=== PATIENT | male | born 1970 | race African-American/Black ===

== ENCOUNTER 2019-11-22 13:02 | Outpatient (CLI) | payer BC, SELFPAY ==
[2019-11-22 13:13] LABS: Basophils Percent Auto 0.6 % (0.2-1.2); Eosinophils Absolute Auto 0.1 K/mm3 (0-0.3); Eosinophils Percent Auto 1.3 % (0-4.4); Hemoglobin 13.9 g/dL (14.0-18.0); Immature Granulocyte Absolute 0.01 K/mm3 (0.00-0.031); Immature Granulocyte Percent A 0.2 % (0-0.5); Lymphocytes Absolute Auto 1.73 K/mm3 (0.9-3.2); Lymphocytes Percent Auto 32.5 % (18.3-44.2); Mean Corpuscular HGB Conc 33.1 g/dl (32-36); Mean Corpuscular Hemoglobin 29.7 pg (26-34); Mean Corpuscular Volume 89.7 fl (80-100); Mean Platelet Volume 10.7 fl (7.4-10.4); Monocytes Absolute Auto 0.5 K/mm3 (0.1-0.6); Monocytes Percent Auto 9.4 % (2.6-8.5); Platelet Count Result 232 k/mm3 (150-375); Red Blood Count 4.68 M/mm3 (4.6-6.20); Red Cell Distribution Width 12.8 % (11.5-14.5); White Blood Count 5.3 K/mm3 (4.5-10.0)
[2019-11-22 13:17] LABS: Blood Urea Nitrogen 13 mg/dL (8-26); Carbon Dioxide 28 mmol/L (22-30); Chloride 100 mmol/L (98-109); Estimated Glomerular Filt Rate > 60; Glucose 101 mg/dL (70-105); Potassium 3.8 mmol/L (3.5-4.9); Sodium 139 mmol/L (138-146)
[2019-11-22 13:49] LABS: Alanine Aminotransferase 19 U/L (4-50); Albumin Level 4.4 g/dL (3.5-5.1); Alkaline Phosphatase 56 U/L (38-126); Aspartate Amino Transferase 30 U/L (17-59); Bilirubin,Total 1.3 mg/dL (0.2-1.3); Blood Urea Nitrogen 13 mg/dL (9-20); Calcium 9.5 mg/dL (8.4-10.2); Carbon Dioxide 30 mmol/L (22-30); Chloride 100 mmol/L (98-107); Estimated Glomerular Filt Rate > 60; Glucose 99 mg/dL (75-110); Potassium 4.1 mmol/L (3.4-5.0); Sodium 138 mmol/L (137-145)
== END 2019-11-22 13:03 | disposition home or self-care (01) ==
LOC: ANHLAB 13:03
PROVIDERS: PCP Family Medicine; Visit Provider Internal Medicine Hematology & Oncology
DX: I82.220 Acute embolism and thrombosis of inferior vena cava (principal)
CPT/HCPCS: 36415; 80048; 80053; 85025

== ENCOUNTER 2019-11-25 07:12 | Outpatient (CLI) | payer BC, SELFPAY ==
--- NOTE | ~2019-11-25 | CT_ITS ---
EXAMINATION: CT abdomen pelvis w con DATE: 11/25/2019 07:52 INDICATION: Thrombosis of inferior vena cava TECHNIQUE: Computed tomography (CT) of the abdomen and pelvis was performed with 100 cc Omnipaque 350 intravenous contrast. Automated exposure control and iterative reconstruction technique were employe d. Exam dose: 741.51 mGy-cm total exam DLP. COMPARISON: 05/25/2019 CT abdomen pelvis FINDINGS: Normal heart size. No pericardial or pleural effusion. There is minimal discoid atelectasis or scarring in the dependent lower lobes. No infiltrate or consolidation is noted in the included lo wer lung zones. The liver, gallbladder, bile ducts, spleen, pancreas, pancreatic duct, and adrenal glands and kidneys are unremarkable. No urinary tract calculus or hydroureteronephrosis. Normal caliber of the abdomina l aorta. No intraperitoneal or retroperitoneal or pelvic mass lesion or adenopathy or ascites. There is moderately prominent prostatomegaly, with diffuse thickening of the urinary bladder wall. No bowel obstruction or intraperitoneal free air, pneumatosis. Normal appendix. Mild colonic divertic ulosis; no CT evidence of diverticulitis. Small caliber IVC is unchanged compared to 05/25/2019. Included skeletal structures are unremarkable, without evidence of suspicious osteolytic or osteoblas tic lesions. IMPRESSION: No significant change since 05/25/2019 Reviewed, dictated and finalized at [facility]. Reviewed, dictated and finalized at location [facility].
== END 2019-11-25 07:13 | disposition home or self-care (01) ==
PROVIDERS: PCP Family Medicine; Visit Provider Internal Medicine Hematology & Oncology
DX: I82.220 Acute embolism and thrombosis of inferior vena cava (principal)
CPT/HCPCS: 74177; Q9967

== ENCOUNTER 2020-05-24 12:46 | Outpatient (CLI) | payer BC, SELFPAY ==
[2020-05-24 13:01] LABS: Basophils Percent Auto 0.7 % (0.2-1.2); Eosinophils Absolute Auto 0.1 K/mm3 (0-0.3); Eosinophils Percent Auto 0.8 % (0-4.4); Hematocrit 40.9 % (42.0-52.0); Hemoglobin 13.8 g/dL (14.0-18.0); Immature Granulocyte Absolute 0.01 K/mm3 (0.00-0.031); Immature Granulocyte Percent A 0.2 % (0-0.5); Lymphocytes Absolute Auto 1.83 K/mm3 (0.9-3.2); Mean Corpuscular HGB Conc 33.7 g/dl (32-36); Mean Corpuscular Hemoglobin 29.7 pg (26-34); Mean Corpuscular Volume 88.1 fl (80-100); Mean Platelet Volume 10.5 fl (7.4-10.4); Monocytes Absolute Auto 0.5 K/mm3 (0.1-0.6); Monocytes Percent Auto 8.5 % (2.6-8.5); Neutrophils Absolute Auto 3.5 K/mm3 (1.3-6.7); Neutrophils Percent Auto 58.8 % (45.5-73.1); Platelet Count Result 238 k/mm3 (150-375); Red Blood Count 4.64 M/mm3 (4.6-6.20); Red Cell Distribution Width 12.7 % (11.5-14.5); White Blood Count 5.9 K/mm3 (4.5-10.0)
[2020-05-24 13:06] LABS: Blood Urea Nitrogen 18 mg/dL (8-26); Carbon Dioxide 30 mmol/L (22-30); Chloride 101 mmol/L (98-109); Estimated Glomerular Filt Rate > 60; Glucose 98 mg/dL (70-105); Potassium 3.8 mmol/L (3.5-4.9); Sodium 139 mmol/L (138-146)
[2020-05-24 17:03] LABS: Alanine Aminotransferase 30 U/L (4-50); Albumin Level 4.1 g/dL (3.5-5.1); Alkaline Phosphatase 54 U/L (38-126); Anion Gap 10 mmol/L (8-16); Aspartate Amino Transferase 32 U/L (17-59); Bilirubin,Total 1.1 mg/dL (0.2-1.3); Blood Urea Nitrogen 18 mg/dL (9-20); Calcium 9.7 mg/dL (8.4-10.2); Carbon Dioxide 27 mmol/L (22-30); Chloride 103 mmol/L (98-107); Estimated Glomerular Filt Rate > 60; Glucose 109 mg/dL (75-110); Sodium 140 mmol/L (137-145)
== END 2020-05-24 12:47 | disposition home or self-care (01) ==
PROVIDERS: PCP Family Medicine; Visit Provider Internal Medicine Hematology & Oncology
DX: I82.220 Acute embolism and thrombosis of inferior vena cava (principal)
CPT/HCPCS: 36415; 80048; 80053; 85025

== ENCOUNTER 2020-08-29 18:07 | Inpatient (IN) | payer BC, SELFPAY ==
--- NOTE | ~2020-08-29 | CT_ITS ---
EXAMINATION: CTA chest PE abdomen pel DATE: 08/29/2020 20:26 SECURITY SYSTEMS ENGINEER INDICATION: History of clots. Evaluate for pulmonary embolism. TECHNIQUE: Computed tomographic angiography (CTA) of the chest, abdomen, and pelvis was performed wit hout and with 100 mL Omnipaque-350 intravenous contrast. The dose-length product was 1183.09 mGy-cm. Maximum intensity projection 3D-reconstructions of the aorta and other arteries were constructed by nataliia brooks technologist on a separate workstation. Automated exposure control and iterative reconstruction te chnique were employed. COMPARISON: CT dated 11/25/2019. FINDINGS: CHEST CTA: The study is technically adequate without evidence for pulmonary embolism. There is heterogeneous gretchen earance to the SVC which likely is due to flow mixing artifact rather than thrombosis, although throm bus is not excluded. No significant pleural or pericardial effusion. Heart size is normal. There is p atchy peripheral airspace consolidation with a nodular appearance to several of these areas. No endob ronchial lesions. ABDOMEN AND PELVIS CTA: The liver, spleen, pancreas, adrenal glands and kidneys are unremarkable. The IVC remains small in ca liber, although appear to remain patent. There are persistent prominent collaterals extending from th e left with enlarged azygos and hemiazygos veins as well as paraspinal veins. There is also collatera l drainage from paraspinal veins. Bladder wall is thickened with mild perivesical infiltration, suspi cious for cystitis. No free air or free fluid. Nonobstructive bowel gas pattern. IMPRESSION: 1. No evidence for pulmonary embolism. 2: Patchy peripheral airspace consolidation with areas of nodularity. Differential diagnosis includes pneumonia, atelectasis and/or focal areas of pulmonary infarction. 3: Heterogeneous appearance to the SVC which likely is due to flow mixing artifact rather than thromb osis, although thrombus is not excluded. 3: Unchanged small caliber inferior vena cava and bilateral common iliac veins with multiple collater al vessels, likely sequela of previous thrombosis. Reviewed, dictated and finalized at location [facility]. RITY SYSTEMS ENGINEER IMPRESSION: 1. No evidence for pulmonary embolism. 2: Patchy peripheral airspace consolidation with areas of nodularity. Different ial diagnosis includes pneumonia, atelectasis and/or focal areas of pulmonary i nfarction. 3: Heterogeneous appearance to the SVC which likely is due to flow mixing artif act rather than thrombosis, although thrombus is not excluded. 3: Unchanged small caliber inferior vena cava and bilateral common iliac veins with multiple collateral vessels, likely sequela of previous thrombosis.
--- NOTE | ~2020-08-29 | US_ITS ---
EXAMINATION: US venous doppler LE EXAM DATE: 08/30/2020 08:12 INDICATION: DVT. Left leg pain. History DVT. TECHNIQUE: Multiple grayscale, color flow and Doppler images of the lower extremity deep venous syste ms bilaterally were obtained and reviewed. Comparison is made to prior examination from 09/02/2018. FINDINGS: RIGHT SIDE Common femoral: -------- Normal. Profunda femoral: ------- Normal. Femoral: Normal. Popliteal: Normal. Posterior tibial: --------- Normal. Peroneal: Normal. Gastrocnemius: Not visualized. Soleus: Not visualized. Greater saphenous: ----- Normal. Lesser saphenous: ------ Not visualized. LEFT SIDE Common femoral: --------Thrombosed. Profunda femoral: -------Thrombosed. Femoral: Thrombosed. Popliteal: Thrombosed. Posterior tibial: --------- Normal. Peroneal: Normal. Gastrocnemius: Not visualized. Soleus: Not visualized. Greater saphenous: ----- Normal. Lesser saphenous: ------ Not visualized. IMPRESSION: 1. Left common femoral through popliteal DVT, probably acute. 2. Slow venous flow bilaterally. I discussed DVT with hospitalist José Miguel at 08/30/2020 08:18 GRADES 7 8 TUTOR . Reviewed, dictated and finalized at location [facility]. ES 7 8 TUTOR
[2020-08-29 18:16] VITALS: BP 129/80; PULSE 88; RESP 18; TEMP 36.7; O2SAT 99
--- NOTE | 2020-08-29 18:44 | ECG_ITS ---
Measurements Intervals [place] Rate: 88 P: 54 HI: 167 QRS: 23 QRSD: 89 T: -16 QT: 338 QTc: 409 Interpretive Statements SINUS RHYTHM NONSPECIFIC T-WAVE ABNORMALITY- ANTEROLAT/INF LEADS BASELINE WANDER- V4-V6 BORDERLINE ECG Electronically Signed On 08-29-2020 20:12:41 AIR CONDITIONING SHEET METAL INSTALLER by Zeeshan Bailon D.O.
--- NOTE | 2020-08-29 18:50 | ED.GENADULT ---
HPI - General Adult General Chief complaint: Unspecified Stated complaint: leg/groin pain Time Seen by Provider: 08/29/20 18:30 Source: patient, family and old records reviewed Mode of arrival: ambulatory Limitations: no limitations History of Present Illness HPI narrative: Patient is a 50-year-old male who presents with left leg pain low back pain and pain in the groin bilaterally that radiates into the thighs anteriorly patient notes history of venous thrombus in the past and notes that he has been off his anticoagulation since being cleared by his oncologist ad setter a year ago patient notes that 19 days ago he was diagnosed with Covid and has been having some fatigue and shortness of breath since patient denies any fever but does note he has had chills since his Covid diagnosis patient on arrival does not appear uncomfortable or in distress patient denies other pertinent past medical history. Patient denies injury or trauma. Patient has tried [id number]-zgn-[id number] medication with minimal improvement for his symptoms. Patient notes he also has some tingling in the left leg. Patient denies history of back issues or similar occurrence. Patient presents with normal gait Related Data Home Medications Medication Instructions Recorded Confirmed aspirin [Aspir-81] 81 mg PO DAILY 08/29/20 08/29/20 calcium citrate-vitamin D3 1 tablet PO DAILY 08/29/20 08/29/20 [Calcitrate-Vitamin D] vitamin B complex [B 1 tablet PO DAILY 08/29/20 08/29/20 Complex-Vitamin B12] Allergies Allergy/AdvReac Type Severity Reaction Status Date / Time aspirin Allergy Unknown POSSIBLE Verified 03/02/19 18:36 BLEED Review of Systems Review of Systems: All systems reviewed & are unremarkable except as noted in HPI and below PMFSH Past Medical History Medical History (Updated 08/29/20 @ 22:06 by Leo Morocho PA-C) DVT (deep venous thrombosis) Social History Social History (Updated 08/29/20 @ 18:51 by Leo Morocho PA-C) Smoking status: Former smoker Gender identity (if verbalized by the patient): Male Exam Narrative: Exam Narrative: GENERAL: Well-appearing, well-nourished, and in no acute distress. HEAD: Normocephalic, atraumatic. EYES: PERRLA and EOMI. ENT: Nares clear, no rhinorrhea or epistaxis. Mucous membranes moist. NECK: Supple. No adenopathy or masses. CHEST: Clear to auscultation. No respiratory distress. No wheezes rales or rhonchi HEART: Regular rate and rhythm. No murmur heard. Normal peripheral pulses. ABDOMEN: Soft, nontender, nondistended EXTREMITIES: Normal range of motion. No edema. Tenderness of the left paraspinal CVA down to the lumbar region no deformities noted SKIN: Warm, dry, no rash. NEURO: No focal deficits. Alert and oriented x3. Cranial nerves II through XII grossly intact. Neurovascularly intact. Capillary refill less than 2 seconds PSYCH: Normal mood and affect. Course Course Emergency Course: Patient is a 50-year-old male who presented with symptoms consistent with his prior thrombus patient was found to have potential thrombus was started on heparin and will be placed in the hospital with his ad setter consult under the hospitalist service. Patient is agreeing with this plan and is hemodynamically stable ABCs and vital signs intact and stable. Consultations Consultation #1: Spoke with Dr. Avila the patient's ad setter who recommends starting heparin and will follow patient in hospital Spoke with the hospitalist Dr. Santacruz and who recommends placing the patient on a medical floor with observation status and will repeat imaging in the morning Date: 08/29/20 Vital Signs Vital signs: Vital Signs Temperature 98.0 F 08/29/20 18:16 Pulse Rate 88 08/29/20 18:16 Respiratory Rate 18 08/29/20 18:16 Blood Pressure 129/80 08/29/20 18:16 Pulse Oximetry 99 08/29/20 18:16 Temperature 97.6 F 08/29/20 19:00 Pulse Rate 79 08/29/20 21:35 Respiratory Rate 16 03/0
[2020-08-29] MEDS: MORPHINE SULFATE (*CRX) 4 MG/ML INJ IV PUSH (18:58)
[2020-08-29 19:00] VITALS: BP 139/90; PULSE 81; PULSE 84; RESP 17; TEMP 36.4; O2SAT 95
[2020-08-29 19:03] LABS: Basophils Percent Auto 0.4 % (0.2-1.2); Eosinophils Absolute Auto 0.1 K/mm3 (0-0.3); Eosinophils Percent Auto 0.9 % (0-4.4); Hematocrit 40.9 % (42.0-52.0); Hemoglobin 13.7 g/dL (14.0-18.0); Immature Granulocyte Absolute 0.06 K/mm3 (0.00-0.031); Immature Granulocyte Percent A 0.5 % (0-0.5); Lymphocytes Absolute Auto 1.81 K/mm3 (0.9-3.2); Lymphocytes Percent Auto 16.3 % (18.3-44.2); Mean Corpuscular HGB Conc 33.5 g/dl (32-36); Mean Corpuscular Hemoglobin 29.8 pg (26-34); Mean Corpuscular Volume 88.9 fl (80-100); Mean Platelet Volume 9.9 fl (7.4-10.4); Monocytes Absolute Auto 1.1 K/mm3 (0.1-0.6); Monocytes Percent Auto 10.2 % (2.6-8.5); Neutrophils Percent Auto 71.7 % (45.5-73.1); Platelet Count Result 358 k/mm3 (150-375); Red Cell Distribution Width 12.4 % (11.5-14.5); White Blood Count 11.1 K/mm3 (4.5-10.0)
--- NOTE | 2020-08-29 19:12 | PC.NURSE ---
Pt report given to YARIEL valdes he has assumed pt care.
[2020-08-29 19:14] LABS: Prothrombin Time 13.3 Seconds (11.1-14.7)
[2020-08-29 19:15] LABS: Partial Thromboplastin Time 26.2 SECONDS (22.3-36.8)
[2020-08-29 19:21] LABS: CRP 2.1 mg/dL (<1.0)
[2020-08-29 19:26] LABS: Alanine Aminotransferase 62 U/L (4-50); Albumin Level 4.3 g/dL (3.5-5.1); Alkaline Phosphatase 67 U/L (38-126); Anion Gap 9 mmol/L (8-16); Aspartate Amino Transferase 44 U/L (17-59); Bilirubin,Total 0.8 mg/dL (0.2-1.3); Blood Urea Nitrogen 17 mg/dL (9-20); Calcium 9.7 mg/dL (8.4-10.2); Carbon Dioxide 29 mmol/L (22-30); Chloride 98 mmol/L (98-107); Estimated CRCL calculation 84 ml/min; Estimated Glomerular Filt Rate > 60; Glucose 110 mg/dL (75-110); Potassium 3.7 mmol/L (3.4-5.0); Sodium 136 mmol/L (137-145)
[2020-08-29 19:36] LABS: Erythrocyte Sedimentation Rate 42 mm/hr (0-20)
[2020-08-29 20:08] LABS: D Dimer 19.97 ug/mL (<0.48)
--- NOTE | 2020-08-29 20:25 | PC.NURSE ---
pt returned from ct at this time via stretcher. cognos architect notified erp dr johnson, and karo cornelius that pt foot is now blood. both erp to bedside for assessment at this time.
[2020-08-29 20:45] VITALS: BP 132/81; PULSE 79; RESP 14; O2SAT 96
[2020-08-29] MEDS: HEPARIN SODIUM 5,000 UNITS/ML VIAL 6500 UNITS IV PUSH (21:29)
[2020-08-29] MEDS: HEPARIN SOD/D5W 100 UNITS/ML 25,000 UNITS/250 ML BAG 15 UNITS IV CONT (21:29)
[2020-08-29 21:35] VITALS: BP 132/75; PULSE 79; RESP 16; O2SAT 95
[2020-08-29 23:18] VITALS: BP 126/84; PULSE 83; RESP 16
--- NOTE | 2020-08-29 23:59 | ADMGEN ---
This patient, Mikael Barrera, was admitted to Medical Room 345-01. Patient/family oriented to hospital policies and general routines including ID bracelet, bed and alarms, visiting hours, pain management, procedures, bathroom and other care routines, personal items, smoking policy, room service/diet, and visiting hours. Information on how to activate the Rapid Response Team has been discussed. Patient/Family are encouraged to report perceived risks to care and to ask questions if they do not understand what they are told or what they should do.
[2020-08-30 00:02] VITALS: BP 108/74; PULSE 104; RESP 20; TEMP 36.3; O2SAT 100; BMI 31.2
--- NOTE | 2020-08-30 00:13 | PM.IMHP ---
H&P: HPI History of Present Illness Date/Time: 08/30/20 00:13 Chief Complaint: Groin pain and back pain Narrative: Mikael Barrera is a 50 year old male with a past medical history of DVTs August 2018 who presented to the ER with bilateral groin pain and low back pain similar to when he had his previous inferior vena cava thrombus. The patient reported that he tested positive for COVID-19 on August 11. His symptoms included headache, cough and a metallic taste in his mouth. Most of his symptoms had resolved by the except for cough in overwhelming fatigue. He reported he also had some shortness of breath with exertion. On August 21 he reported that he was walking across the room when he had a syncopal episode. He has noticed becoming diaphoretic when he has exertion and has to sit down to recover. He reports that his cough is worse with deep breathing. He denies any chest pain or palpitations. He never had any fevers with his COVID diagnosis. He reports that when he woke up on Friday he noticed some vague low back discomfort and groin discomfort. The pain in his groins radiated into his thighs anteriorly. The symptoms were similar to when he had his prior her thrombus. The pain is achy and is worse with activity. Pain is moderate in intensity. He reports that just prior to coming to the ER he was ambulating in his left leg gave out. He has noticed his left leg as more splotchy discoloration. He has not noticed any lower extremity swelling. He has 2+ palpable pulses pedal and posterior tib. The patient had been on Xarelto for about a year following his prior DVT in 2019. Review of Systems Review of Systems: Narrative: 12 systems were reviewed with pertinent positives and negatives per HPI. Except as documented in the HPI, all other systems were reviewed and are negative. 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 He had drinks alcohol in moderation once every 2-3 months. He has been for 14 years. He has 2 daughters ages 22 and 14 or healthy. 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 They have a Bulgar[place] Mas. He has 2 siblings who are in their 40s and 50s who are healthy. Code status: Full code Smoking status: Never smoker Alcohol intake: never Substance use: never Gender identity (if verbalized by the patient): Male Spiritual care concerns: No Meds Home Medications and Allergies Home Medications Medication Instructions Recorded Confirmed Type aspirin [Aspir-81] 81 mg PO DAILY 08/29/20 08/29/20 History calcium citrate-vitamin D3 1 tablet PO DAILY 08/29/20 08/29/20 History [Calcitrate-Vitamin D] vitamin B complex [B 1 tablet PO DAILY 08/29/20 08/29/20 History Complex-Vitamin B12] Allergies Allergy/AdvReac Type Severity Reaction Status Date / Time No Known Allergies Allergy Verified 08/30/20 01:09 Vital Signs Vital Signs - 24 hr 08/29/20 18:16 08/29/20 19:00 08/29/20 20:45 Temperature 98.0 F 97.6 F Pulse Rate 88 84 79 Respiratory Rate 18 17 14 Blood Pressure 129/80 139/90 132/81 Pulse Oximetry 99 95 96 08/29/20 21:35 08/29/20 23:18 08/30/20 00:02 Temperature 97.3 F L Pulse Rate 79 83 104 H Respiratory Rate 16 16 20 Blood Pressure 132/75 126/84 108/74 Pulse Oximetry 95 100 Exam Narrative: Exam Narrative: PHYSICAL EXAM: WEIGHT 98.7 kg BMI 31.2 General: No
[2020-08-30] MEDS: SODIUM CHLORIDE 0.9% IV 1,000 ML 75 ML IV CONT ×2 (02:02→22:03)
[2020-08-30 03:44] LABS: Basophils Percent Auto 0.4 % (0.2-1.2); Eosinophils Absolute Auto 0.1 K/mm3 (0-0.3); Eosinophils Percent Auto 0.5 % (0-4.4); Hematocrit 38.1 % (42.0-52.0); Hemoglobin 12.9 g/dL (14.0-18.0); Immature Granulocyte Absolute 0.05 K/mm3 (0.00-0.031); Immature Granulocyte Percent A 0.5 % (0-0.5); Lymphocytes Absolute Auto 1.94 K/mm3 (0.9-3.2); Lymphocytes Percent Auto 18.5 % (18.3-44.2); Mean Corpuscular HGB Conc 33.9 g/dl (32-36); Mean Corpuscular Hemoglobin 29.7 pg (26-34); Mean Corpuscular Volume 87.8 fl (80-100); Monocytes Absolute Auto 1.1 K/mm3 (0.1-0.6); Neutrophils Absolute Auto 7.4 K/mm3 (1.3-6.7); Neutrophils Percent Auto 70.1 % (45.5-73.1); Platelet Count Result 334 k/mm3 (150-375); Red Blood Count 4.34 M/mm3 (4.6-6.20); Red Cell Distribution Width 12.6 % (11.5-14.5); White Blood Count 10.5 K/mm3 (4.5-10.0)
[2020-08-30 03:56] LABS: Partial Thromboplastin Time 102.6 SECONDS (22.3-36.8)
[2020-08-30 05:09] VITALS: BP 114/70; PULSE 65; RESP 18; TEMP 36.3; O2SAT 96
[2020-08-30] MEDS: FAMOTIDINE 20 MG/2 ML VIAL IV PUSH ×2 (09:14→21:05)
[2020-08-30] MEDS: ASPIRIN 81 MG ENTERIC TABLET PO (09:14)
[2020-08-30] MEDS: VITAMIN B COMPLEX CAPSULE 1 CAP PO (09:14)
[2020-08-30 09:50] LABS: Partial Thromboplastin Time 89.3 SECONDS (22.3-36.8)
[2020-08-30 11:32] LABS: Add Urine Microscopic? YES; Appearance Urine Clear (Clear); Bilirubin Urine Negative (Negative); Blood Urine Negative (Negative); Color Urine Yellow (Yellow); Glucose Urine UA Negative (Negative); Ketones Urine Negative (Negative); Leukocyte Esterase Ur Negative LEU/UL (Negative); Mucus Urine Rare /lpf; Nitrate Urine Negative (Negative); Protein Urine 1+ mg/dL (Negative); RBC Urine 0-2 /hpf (0-2); Squamous Epithelial Cell Urine Rare /hpf (Few); Urobilinogen Urine Negative mg/dL (<2.0); WBC Urine 0-3 /hpf
[2020-08-30 11:33] VITALS: BMI 31.2
[2020-08-30 11:36] LABS: Specific Grav Ur 1.035 (1.001-1.035)
--- NOTE | 2020-08-30 11:49 | PCNSR ---
On 08/30/20, the student,Emperatriz Whitt, provided care and completed [facility]. I have reviewed the student's documentation and agree with the findings.
--- NOTE | 2020-08-30 11:51 | PM.IMPN ---
Progress Note: A&P Assessment and Plan (1) DVT (deep venous thrombosis): Code(s): I82.409 - Acute embolism and thrombosis of unspecified deep veins of unspecified lower extremity Status: Inactive Assessment and Plan: Extensive DVT of left lower extremity on venous Doppler. Suspected DVT of SVT, although CTA c/a/p read is likely due to mixing artifact rather than thrombosis. Dr. Avila consulted from the ED, whom he follows as an outpatient for a previous DVT. Appreciate recommendations. No signs of vascular compromise as patient has great distal pulses and full sensation in left LE Continue heparin drip for now Will discuss further with Dr. Avila, but will likely need to be transitioned to either Lovenox or possible Xarelto again Monitor (2) COVID-19: Code(s): U07.1 - COVID-19 Status: Acute Assessment and Plan: He is beyond the infectious window. The patient is cough and shortness of breath symptoms have actually been improving. Monitor Subjective Date/time seen: 08/30/20 11:51 Interval history: Patient is a 50 year old male with a past medical history of DVTs August 2018 who is seen in follow up for extensive DVT of left leg. Patient states he feels okay currently, but his main complaint is lower back pain. Notes this is from his lower back near his sacrum and extends bilaterally over his hip bones and shoots down the back of this legs, left worse then right. Patient otherwise feels okay today. Has full sensation in both legs. No other complaints other than a residual dry cough from his COVID. Denies f/c/s, headaches, dizziness, lightheadedness, cp/palpitations, sob/cough, n/v/d/c, abd pain, changes in BMs, dysuria Review of Systems Review of Systems: All systems reviewed & are unremarkable except as noted in HPI and below Exam Narrative: Exam Narrative: General: Patient resting in semi-mcgovern's position in bed in no acute distress. HEENT: Normocephalic, EOMI, oral mucosa moist. Cardiovascular: Rate and rhythm are regular. No notable murmur, rub, or gallop. Respiratory: Lungs clear to auscultation all mitchell. Non-labored breathing. Abdomen: Soft, non-tender, non-distended, bowel sounds present. Extremities: Peripheral pulses intact. edema appreciated in left LE. B/l pedal pulses +2. LE slight cool to touch. Erythema noted on inside of left thigh and knee. Neuro: No focal neurological deficits. Speech is clear. Objective Data Vital Signs Vital Signs: Last Vital Signs Temp 97.4 F L 08/30/20 05:09 Pulse 65 08/30/20 05:09 Resp 18 08/30/20 05:09 BP 114/70 08/30/20 05:09 Pulse Ox 96 08/30/20 05:09 Intake/Output Intake/Output: Intake & Output 08/27/20 08/28/20 08/29/20 08/30/20 23:59 23:59 23:59 23:59 Intake Total 490 Balance 490 Meds/Results Medications: Active Medications Generic Name Dose Route Start Last Admin Trade Name Freq PRN Reason Stop Dose Admin Aspirin 81 mg 08/30/20 09:00 08/30/20 09:14 Aspirin 81 Mg Enteric Tablet PO 81 mg DAILY CLAUDETTE Administration Calcium Citrate 1 tablet 08/30/20 09:00 08/30/20 09:14 Calcium Citrate 315 Mg/Vitamin D 250 Units Tab PO 1 tablet DAILY CLAUDETTE Administration Famotidine 20 mg 08/30/20 09:00 08/30/20 09:14 Famotidine 20 Mg/2 Ml Vial IV PUSH 20 mg Q12HR CLAUDETTE Administration Heparin Sodium (Porcine) 6,500 units 08/29/20 21:02 Heparin Sodium 5,000 Units/Ml Vial IV PUSH PRN PRN aPTT less than 55 seconds Heparin Sodium (Porcine) 3,500 units 08/29/20 21:02 Heparin Sodium 5,000 Units/Ml Vial IV PUSH PRN PRN aPTT 55 - 70 seconds Heparin Sodium/Dextrose 25,000 units in 250 mls @ 15 mls/hr 08/29/20 21:05 08/30/20 04:01 Heparin Sodium/D5w 100 Units/Ml IV CONT 1,500 units/hr .[id number] CLAUDETTE 15 mls/hr Titration Protocol 1,500 UNITS/HR Acetaminophe
[2020-08-30 12:00] VITALS: BP 120/74; PULSE 80; RESP 18; TEMP 36.1; O2SAT 98
[2020-08-30] MEDS: HEPARIN SOD/D5W 100 UNITS/ML 25,000 UNITS/250 ML BAG 15 UNITS IV CONT (13:45)
[2020-08-30] MEDS: guaiFENesin/DEXTROMETHORPHAN 10 ML UDC 5 ML PO ×2 (14:21→21:05)
--- NOTE | 2020-08-30 17:29 | PDONCCN ---
[facility] - Date of Consult Date/Time: 08/30/20 17:29 Requesting Physician: José Miguel Thompson PA-C Primary Care Provider: Jordan MarinoChela - Consult Narrative Reason for consult: Hypercoagulable state Narrative: Mikael Barrera is a 50 year old male with history of inferior vena cava thrombosis diagnosed in 2019. He was treated with Xarelto with complete resolution of IVC thrombosis. Dr. was discontinued in February 2019. Hypercoagulable workup at that time was completely unremarkable. He now came back into the hospital with left lower extremity edema and pain along with lower pelvic and back pain. He was dealing with COVID-19 infection and tested positive August 11. He was quite tired and fatigued with having some shortness of breath. He was quite sedentary due to tiredness and fatigue. Patient had CT scan done in the ER that showed possible as we see thrombosis and pulmonary infarction. Doppler study showed left lower extremity DVT. D-dimer was found to be elevated. Patient was started on heparin. He is already feeling better and the pain is under better control. 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 Surgical History: Surgical History (Last Updated 08/30/20 @ 00:18 by Laura Casey DO) No significant past surgical history Family History: Family History (Last Updated 08/30/20 @ 01:31 by Laura Casey DO) Father Malignant neoplasm of prostate 92 years old Senile dementia Mother Diabetes mellitus 89 years old - Social History Social History: Social History (Last Updated 08/30/20 @ 01:31 by Laura Casey DO) Gender Identity: Gender identity (if verbalized by the patient): Male Alcohol Use: Alcohol intake: never Substance Use: Substance use: never Others: Spiritual care concerns: No Smoking Status: Smoking status: Never smoker Meds Home Medications Medication Instructions Recorded Confirmed Type aspirin [Aspir-81] 81 mg PO DAILY 08/29/20 08/29/20 History calcium citrate-vitamin D3 1 tablet PO DAILY 08/29/20 08/29/20 History [Calcitrate-Vitamin D] vitamin B complex [B 1 tablet PO DAILY 08/29/20 08/29/20 History Complex-Vitamin B12] Allergies Allergy/AdvReac Type Severity Reaction Status Date / Time No Known Allergies Allergy Verified 08/30/20 01:09 Results - Labs CBC & Chem 7: 08/30/20 03:33 08/29/20 18:52 Labs: Short CBC 08/29/20 08/30/20 Range/Units 18:52 03:33 WBC 11.1 H 10.5 H (4.5-10.0) K/mm3 Hgb 13.7 L 12.9 L (14.0-18.0) g/dL Hct 40.9 L 38.1 L (42.0-52.0) % Plt Count 358 D 334 (150-375) k/mm3 BMP 08/29/20 18:52 Sodium 136 L Potassium 3.7 Chloride 98 Carbon Dioxide 29 BUN 17 Creatinine 1.10 Glucose 110 Calcium 9.7 Liver Function 08/29/20 Range/Units 18:52 Total Bilirubin 0.8 (0.2-1.3) mg/dL AST 44 (17-59) U/L ALT 62 H (4-50) U/L Alkaline Phosphatase 67 (38-126) U/L Albumin 4.3 (3.5-5.1) g/dL Urine 08/30/20 Range/Units 11:19 Urine Color Yellow (Yellow) Urine Appearance Clear (Clear) Urine pH 6.0 (5.0-9.0) Ur Specific [place] 1.035 (1.001-1.035) Urine Protein 1+ H (Negative) mg/dL Urine Glucose (UA) Negative (Negative) mg/dL Assessment and Plan - Additional Plan Hypercoagulable state. Patient was previously diagnosed with inferior vena cava thrombosis in 2019. He was treated with Xarelto with complete resolution of IVC thrombosis. Hypercoagulable workup performed at that time came back unremarkable. Xarelto was discontinued in February 2019 and patient was started on aspirin. He was evaluated by Dr. Henderson in vascular surgery and no furt
[2020-08-30 20:00] VITALS: BP 125/75; PULSE 67; RESP 17; TEMP 36.5; O2SAT 98
[2020-08-31] VITALS: BP 112/65; PULSE 62; RESP 17; TEMP 36.4; O2SAT 97
--- NOTE | 2020-08-31 | ECHO_ITS ---
Patient Info Name: Mikael Barrera Age: 50 years : 1970 Gender: Male Ht: 70 in Wt: 217 lbs BSA: 2.23 m2 HR: 69 bpm BP: 122 / 74 mmHg Technical Quality: Good Exam Date: 08/31/2020 4:23 PM Exam Location: [facility] Pulmonary Exam Room: 341 Patient Status: Inpatient Admit Date: 08/31/2020 Staff Ordering Physician: Latrell Johnson MD Management Developer: Leelee Finnegan RDCS Attending Provider: José Miguel Thompson PA-C Exam Type: CA echo doppler color flow Study Info Indications - SOB /DVT Complete two-dimensional, color flow and Doppler transthoracic echocardiogram is performed. Summary 1. Complete two-dimensional, color flow and Doppler transthoracic echocardiogram is performed. 2. Left ventricular systolic function is normal, estimated at 60-65%. Left Ventricle Left ventricular chamber dimension is normal. Left ventricular systolic function is normal, estimated at 60-65%. There is no increased left ventricular wall thickness. Left ventricular septal wall motion is normal. The left ventricular diastolic function is normal. Right Ventricle Right ventricular chamber dimension is normal. Right ventricular systolic function is normal. Left Atria Left atrial chamber dimension is normal. Right Atria Right atrial chamber dimension is normal. Aortic Valve The aortic valve is trileaflet. There is no aortic valve sclerosis. There is no aortic valve stenosis. There is no aortic valve regurgitation. Pulmonic Valve The pulmonic valve is normal. There is no pulmonic valve stenosis. There is no pulmonic regurgitation. Mitral Valve The mitral valve has normal leaflets. There is no mitral valve stenosis. There is no mitral valve regurgitation. Tricuspid Valve The tricuspid valve leaflets are normal. There is no significant tricuspid valve stenosis. There is no tricuspid valve regurgitation. No pulmonary hypertension, estimated pulmonary arterial systolic pressure is 28 mmHg. Pericardium/Pleural The pericardium appears normal. There is no pericardial effusion. Inferior Vena Cava Normal inferior vena cava with >50% collapse upon inspiration consistent with normal right atrial pressure, 10 mmHg. Aorta The aortic root size at the sinus of Valsalva is normal. The prox ascending aorta size is normal. Left Ventricular Outflow Tract Name Value Normal LVOT 2D LVOT Diameter 2.1 cm LVOT Doppler LVOT Peak Gradient 5 mmHg LVOT Mean Gradient 3 mmHg LVOT VTI 20 cm LVOT VTI/AV VTI Ratio 0.9 LVOT Stroke Volume 65 ml LVOT CO 15.1 l/min LVOT CI 6.8 l/min/m2 Pulmonic Valve Name Value Normal PV Doppler PV Peak Gradient
[2020-08-31 05:18] VITALS: BP 114/64; PULSE 65; RESP 14; TEMP 36.4; O2SAT 94
[2020-08-31 06:11] LABS: Basophils Percent Auto 0.3 % (0.2-1.2); Eosinophils Absolute Auto 0.1 K/mm3 (0-0.3); Eosinophils Percent Auto 1.4 % (0-4.4); Hematocrit 35.4 % (42.0-52.0); Hemoglobin 11.6 g/dL (14.0-18.0); Immature Granulocyte Absolute 0.04 K/mm3 (0.00-0.031); Immature Granulocyte Percent A 0.5 % (0-0.5); Lymphocytes Absolute Auto 2.29 K/mm3 (0.9-3.2); Lymphocytes Percent Auto 25.8 % (18.3-44.2); Mean Corpuscular HGB Conc 32.8 g/dl (32-36); Mean Corpuscular Hemoglobin 29.1 pg (26-34); Mean Corpuscular Volume 88.7 fl (80-100); Mean Platelet Volume 10.3 fl (7.4-10.4); Monocytes Absolute Auto 1.2 K/mm3 (0.1-0.6); Monocytes Percent Auto 13.9 % (2.6-8.5); Neutrophils Absolute Auto 5.2 K/mm3 (1.3-6.7); Neutrophils Percent Auto 58.1 % (45.5-73.1); Platelet Count Result 319 k/mm3 (150-375); Red Blood Count 3.99 M/mm3 (4.6-6.20); Red Cell Distribution Width 12.5 % (11.5-14.5); White Blood Count 8.9 K/mm3 (4.5-10.0)
[2020-08-31 06:31] LABS: Alanine Aminotransferase 40 U/L (4-50); Albumin Level 3.7 g/dL (3.5-5.1); Alkaline Phosphatase 49 U/L (38-126); Anion Gap 5 mmol/L (8-16); Aspartate Amino Transferase 30 U/L (17-59); Blood Urea Nitrogen 15 mg/dL (9-20); Calcium 8.7 mg/dL (8.4-10.2); Carbon Dioxide 31 mmol/L (22-30); Chloride 100 mmol/L (98-107); Estimated CRCL calculation 100 ml/min; Estimated Glomerular Filt Rate > 60; Glucose 99 mg/dL (75-110); Magnesium 1.4 mg/dL (1.6-2.3); Sodium 136 mmol/L (137-145)
[2020-08-31 06:37] LABS: Partial Thromboplastin Time 96.7 SECONDS (22.3-36.8)
[2020-08-31] MEDS: HEPARIN SOD/D5W 100 UNITS/ML 25,000 UNITS/250 ML BAG 15 UNITS IV CONT (06:48)
--- NOTE | 2020-08-31 08:05 | PM.IMPN ---
Progress Note: A&P Assessment and Plan (1) DVT (deep venous thrombosis): Code(s): I82.409 - Acute embolism and thrombosis of unspecified deep veins of unspecified lower extremity Status: Inactive Assessment and Plan: Extensive DVT of left lower extremity on venous Doppler and suspected DVT of SVT, although CTA c/a/p read as likely due to mixing artifact rather than thrombosis. Dr. Avila consulted from the ED, whom he follows as an outpatient for a previous DVT. Discussed case with Dr. Avila, and plan is for heparin drip through tonight and likely discharge tomorrow on Xarelto; plans for lifelong a/c per Dr. Avila. Appreciate recommendations. No signs of vascular compromise as patient has great distal pulses and full sensation in left LE Continue heparin drip for now through tomorrow morning; likely transition to Xarelto tomorrow morning - 15 mg BID x 3 weeks, then 20 mg every evening thereafter F/u with Dr. Avila as outpatient Monitor (2) COVID-19: Code(s): U07.1 - COVID-19 Status: Acute Assessment and Plan: He is beyond the infectious window. The patient is cough and shortness of breath symptoms have actually been improving. 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 Patient states he feels better today. He did have an episode of throbbing LLE pain for about 3-4 hours overnight, but resolved around 4 am. He does feel he may have more sensation in both his LE. He reporta constipation and would like a laxative. Back pain is better today as well. No other complaints other than a residual dry cough from his COVID. Denies f/c/s, headaches, dizziness, lightheadedness, cp/palpitations, sob/cough, n/v/d, abd pain, changes in BMs, dysuria Review of Systems Review of Systems: All systems reviewed & are unremarkable except as noted in HPI and below Exam Narrative: Exam Narrative: General: Patient resting in semi-mcgovern's position in bed in no acute distress. HEENT: Normocephalic, EOMI, oral mucosa moist. Cardiovascular: Rate and rhythm are regular. No notable murmur, rub, or gallop. Respiratory: Lungs clear to auscultation all mitchell. Non-labored breathing. Abdomen: Soft, non-tender, non-distended, bowel sounds present. Extremities: Peripheral pulses intact. edema appreciated in left LE. B/l pedal pulses +2. LE slightly cool to touch left cooler then right. Erythema noted on medial and posterior aspect of left thigh and knee. Neuro: No focal neurological deficits. Speech is clear. Objective Data Vital Signs Vital Signs: Last Vital Signs Temp 97.6 F 08/31/20 05:18 Pulse 65 08/31/20 05:18 Resp 14 08/31/20 05:18 BP 114/64 08/31/20 05:18 Pulse Ox 94 08/31/20 05:18 Intake/Output Intake/Output: Intake & Output 08/28/20 08/29/20 08/30/20 08/31/20 23:59 23:59 23:59 23:59 Intake Total 3020 300 Output Total 1900 400 Balance 1120 -100 Meds/Results Medications: Active Medications Generic Name Dose Route Start Last Admin Trade Name Freq PRN Reason Stop Dose Admin Acetaminophen 650 mg 08/30/20 14:01 Acetaminophen 325 Mg Tablet PO Q6H PRN Mild Pain (1-3) or Fever Aspirin 81 mg 08/30/20 09:00 08/30/20 09:14 Aspirin 81 Mg Enteric Tablet PO 81 mg DAILY CLAUDETTE Administration Calcium Citrate 1 tablet 08/30/20 09:00 08/30/20 09:14 Calcium Citrate 315 Mg/Vitamin D 250 Units Tab PO 1 tablet DAILY CLAUDETTE Administration Famotidine 20 mg 08/30/20 09:00 08/30/20 21:05 Famotidine 20 Mg/2 Ml Vial IV PUSH 20 mg Q12HR CLAUDETTE Administration Guaifenesin/Dextromethorphan 5 ml 08/30/20 14:02 08/30/20 21:05 Guaifenesin/Nilo
[2020-08-31] MEDS: guaiFENesin/DEXTROMETHORPHAN 10 ML UDC 5 ML PO ×2 (09:01→20:03)
[2020-08-31] MEDS: FAMOTIDINE 20 MG/2 ML VIAL IV PUSH ×2 (09:01→20:05)
[2020-08-31] MEDS: VITAMIN B COMPLEX CAPSULE 1 CAP PO (09:01)
[2020-08-31] MEDS: ASPIRIN 81 MG ENTERIC TABLET PO (09:01)
[2020-08-31 12:00] VITALS: BP 122/74; PULSE 71; RESP 16; TEMP 36.4; O2SAT 97
[2020-08-31] MEDS: SODIUM CHLORIDE 0.9% IV 1,000 ML 75 ML IV CONT (12:27)
--- NOTE | 2020-08-31 14:27 | WPDONCPN ---
Progress Note: A/P - Additional Plan Hypercoagulable state. Patient has a history of inferior vena cava thrombosis. Now showed left lower extremity DVT and possible inferior vena cava thrombosis. Patient is on heparin with some improvement in pain and swelling in the left lower extremity. I have discussed this case with . I will ask his opinion regarding thrombolysis therapy. Hopefully patient will be ready to go home in next 48 hours on Xarelto. - Time Spent With Patient Total time spent is greater than 50% in coordination of care (as documented) at patient's floor/unit and/or counseling patient: 25 - 35 minutes Subjective Interval history: Hypercoagulable state with left lower extremity DVT Inferior vena cava thrombosis Review of Systems - Review of Systems Patient still have some left lower extremity pain but not required any pain medicines at this time. Denies any chest pain shortness of breath. Abdominal pain has improved. No bleeding and bruising. Exam Vital signs: Temp Pulse Resp BP Pulse Ox 36.4 C 71 16 122/74 97 08/31/20 12:00 08/31/20 12:00 08/31/20 12:00 08/31/20 12:00 08/31/20 12:00 Narrative: Lungs are clear to auscultation bilaterally Cardiovascular regular rate rhythm no murmurs Abdomen soft nontender nondistended bowel sounds are positive Extremities left lower extremity edema pulses are palpable mild purplish discoloration of the toes PN: Objective Data - Labs CBC & Chem 7: 08/31/20 05:17 08/31/20 05:17 Labs: Laboratory Results - last 24 hr 08/31/20 08/31/20 08/31/20 05:17 05:17 06:09 WBC 8.9 RBC 3.99 L Hgb 11.6 L Hct 35.4 L MCV 88.7 MCH 29.1 MCHC 32.8 RDW 12.5 Plt Count 319 MPV 10.3 Immature Gran % (Auto) 0.5 Neut % (Auto) 58.1 Lymph % (Auto) 25.8 [place] % (Auto) 13.9 H Eos % (Auto) 1.4 Baso % (Auto) 0.3 Lymph # (Auto) 2.29 [place] # (Auto) 1.2 H Eos # (Auto) 0.1 Baso # (Auto) 0.0 Abs Immat Gran (auto) 0.04 H Absolute Neuts (auto) 5.2 Absolute Nucleated RBC 0.0 Nucleated RBC % 0.0 APTT 96.7 H Sodium 136 L Potassium 4.0 Chloride 100 Carbon Dioxide 31 H Anion Gap 5 L BUN 15 Creatinine 0.90 Estim Creat Clear Calc 100 Estimated GFR > 60 Glucose 99 Calcium 8.7 Magnesium 1.4 L Total Bilirubin 1.0 AST 30 ALT 40 Alkaline Phosphatase 49 Total Protein 7.0 Albumin 3.7
--- NOTE | 2020-08-31 15:00 | PM.CNCAR ---
Assessment and Plan Assessment and plan (1) Acute deep vein thrombosis (DVT) of superior vena cava: Code(s): I82.210 - Acute embolism and thrombosis of superior vena cava Status: Acute Assessment and Plan: he seems to have recurrence of DVT but this time involving common femoral vein, possibly iliac vein, because of the recurrence raise suspicion for left iliac vein compression syndrome, which causing recurrent DVT. At this time no signs of PE, and no signs of thrombosis of the vena cava, and clinically she seems to be improving with the heparin (2) COVID-19: Code(s): U07.1 - COVID-19 Status: Acute (3) Iliac vein thrombosis: Code(s): I82.429 - Acute embolism and thrombosis of unspecified iliac vein Status: Acute Assessment and Plan: with history of recurrence of DVT he needs to start back on Xarelto, and need to be investigated for compression syndrome, with intravascular ultrasound. Since he is clinically improving with anticoagulation will resume Xarelto at 15 twice a day for 3 weeks and follow him clinically, at the event that he has worsening symptoms or some swelling or obstruction symptoms then will consider thrombectomy, otherwise since he is clinically improving with anticoagulation continue with that and plan on intravascular ultrasound in about 2-3 weeks to consider stenting and treatment for long-term History of Present Illness History of Present Illness Consult date/time: 08/31/20 15:00 chief complaint is leg pain 50 years old gentleman with history of previous DVT, came to the hospital because of recurrent DVT on the left leg. Apparently back in 2019 he had an leg pain and leg swelling and noted to have DVT involving the inferior vena cava and left common femoral vein at that time was given heparin and subsequently was on Xarelto with significant improvement of symptoms and resolved, after treated for diet for 6 months Xarelto was stopped and he stayed on aspirin. Start having symptoms few days ago with sudden onset leg pain and leg swelling in the left leg. Prior to that he had COVID positive and some shortness of breath and diagnosed with COVID about 3 weeks ago. His shortness breath is slightly better he still has some cough, had CT of the chest was negative for PE and CT of the abdomen showed no significant thrombosis of the vena cava at this time. Currently has been on heparin, and symptoms are improved. 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 He had drinks alcohol in moderation once every 2-3 months. He has been for 14 years. He has 2 daughters ages 22 and 14 or healthy. 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 They have a Vietnamese Mas. He has 2 siblings who are in their 40s and 50s who are healthy. Code status: Full code Smoking status: Never smoker Alcohol intake: never Substance use: never Gender identity (if verbalized by the patient): Male Spiritual care concerns: No Meds Home Medications and Allergies Home Medications Medicatio
[2020-08-31 16:00] VITALS: BP 122/71; PULSE 64; RESP 16; TEMP 36.9; O2SAT 97
[2020-08-31] MEDS: RIVAROXABAN 15 MG TABLET PO (17:14)
[2020-08-31 19:48] VITALS: O2SAT 98
[2020-08-31 19:55] VITALS: BP 126/64; PULSE 75; RESP 16; TEMP 36.8; O2SAT 95
[2020-08-31] MEDS: ACETAMINOPHEN 325 MG TABLET 650 MG PO (20:01)
[2020-09-01] VITALS: BP 112/63; PULSE 65; RESP 18; TEMP 36.6; O2SAT 98
[2020-09-01] MEDS: SODIUM CHLORIDE 0.9% IV 1,000 ML 75 ML IV CONT (01:26)
[2020-09-01 05:01] VITALS: BP 110/63; PULSE 65; RESP 14; TEMP 36.4; O2SAT 97
[2020-09-01] MEDS: ACETAMINOPHEN 325 MG TABLET 650 MG PO (07:51)
[2020-09-01] MEDS: RIVAROXABAN 15 MG TABLET PO (08:39)
[2020-09-01] MEDS: ASPIRIN 81 MG ENTERIC TABLET PO (08:39)
[2020-09-01] MEDS: VITAMIN B COMPLEX CAPSULE 1 CAP PO (08:39)
[2020-09-01] MEDS: FAMOTIDINE 20 MG/2 ML VIAL IV PUSH (08:39)
[2020-09-01] MEDS: guaiFENesin/DEXTROMETHORPHAN 10 ML UDC 5 ML PO (08:40)
--- NOTE | 2020-09-01 12:27 | PM.DS ---
DS: Admitting Diagnosis Admitting Diagnosis Admitting Diagnosis: DVT DS: Discharge Diagnosis Discharge Diagnosis (1) DVT (deep venous thrombosis): Code(s): I82.409 - Acute embolism and thrombosis of unspecified deep veins of unspecified lower extremity Status: Inactive Assessment and Plan: Extensive DVT of left lower extremity on venous Doppler and suspected DVT of SVT, although CTA c/a/p read as likely due to mixing artifact rather than thrombosis. Dr. Avila consulted from the ED, whom he follows as an outpatient for a previous DVT. Dr. Avila consulted Dr. Johnson who has seen the patient and plans to follow up with him as an outpatient in 1 week then again in 2-3 weeks. Discussed case with him who requested to provide prescription for only first 3 weeks of Xarelto (15 mg BID x 21 days), then he will provide the prescription for 20 mg daily once he is evaluated as an outpatient. Appreciate recommendations. No signs of vascular compromise as patient has great distal pulses and full sensation in left LE. Patient was started on Xarelto 15 mg BID evening of 08/31. Will prescribe Xarelto 15 mg BID x [address] Johnson request; he will prescribe remainder of course as an outpatient F/u with Dr. Avila and Dr. Johnson as outpatient (2) COVID-19: Code(s): U07.1 - COVID-19 Status: Acute Assessment and Plan: He is beyond the infectious window. The patient is cough and shortness of breath symptoms have actually been improving. Symptom control with Robitussin for cough Monitor DS: Summary Hospital Course Reason for hospitalization: DVT Hospital Course: Date of arrival: 08/29/20 Date of discharge: 09/01/20 Patient is a 50 year old male with a past medical history of DVTs August 2018 who presented to the ER on 08/29 with bilateral groin pain and low back pain similar to when he had his previous inferior vena cava thrombus. While in the ED, CTA c/a/p revealed heterogenous appearance to the SVC which likely is due to flow mixing artifact rather than thrombosis, although thrombus is not excluded. Physical exam revealed LE edema. DVT was suspected and was placed on heparin drip. Dr. Avila was consulted from the ED. Patient admitted under this setting. Please see H&P for further details. Patient was admitted to the hospitalist service for further management/treatment. While on the medical floor, Venous Doppler of the bilateral LE revealed an extensive DVT of the left lower extremity. Patient continued on a heparin drip during stay for partial thrombolytic effect; he continued on this through morning of 08/31 and was transitioned to PO Xarelto (15 mg BID x 3 weeks, 20 mg thereafter) on evening of 08/31. Dr. Avila consulted Dr. Johnson (Vascular specialist) for further input. He recommended prompt follow up with him in 1 week for reevaluation of his extensive left lower extremity DVT and suspicion of iliac vein compression syndrome. He is to have a possible intravascular ultrasound at that time. Swelling and pain improved significantly over his clinical course and thus was to continue Xarelto 15 mg BID to complete 3 weeks, then transition to 20 mg thereafter; 20 mg daily was to be prescribed by Dr. Johnson given the uncertainty of further work up/management, including possible thrombectomy in the future. Plan was for him to follow up with Dr. Johnson in [address] Avila as an outpatient. He was to follow up with his PCP as well. Patient and patient agreeable and comfortable with plan for discharge. Patient hemodynamically stable and in improved condition for discharge on 09/01 Status at Discharge Overall status at discharge: patient is progressing back to baseline Time Spent with Patient Time attestation: Total time spent providing and/or coordinating discharge services: Time spent: Dorcas cobb
--- NOTE | 2020-09-01 14:45 | PM.PNCARD ---
Progress Note: A&P Assessment and Plan (1) Acute deep vein thrombosis (DVT) of superior vena cava: Code(s): I82.210 - Acute embolism and thrombosis of superior vena cava Status: Acute Assessment and Plan: he seems to have recurrence of DVT but this time involving common femoral vein, possibly iliac vein, because of the recurrence raise suspicion for left iliac vein compression syndrome, which causing recurrent DVT. At this time no signs of PE, and no signs of thrombosis of the vena cava, and clinically improving with Xarelto, he is okay to be discharged home today to have a follow-up with me in 1 week (2) COVID-19: Code(s): U07.1 - COVID-19 Status: Acute (3) Iliac vein thrombosis: Code(s): I82.429 - Acute embolism and thrombosis of unspecified iliac vein Status: Acute Assessment and Plan: with history of recurrence of DVT he needs to start back on Xarelto, and need to be investigated for compression syndrome, with intravascular ultrasound. Since he is clinically improving with anticoagulation will continue with Xarelto at 15 twice a day for 3 weeks and follow him clinically, at the event that he has worsening symptoms or some swelling or obstruction symptoms then will consider thrombectomy, otherwise since he is clinically improving with anticoagulation continue with that and plan on intravascular ultrasound in about 2-3 weeks to consider stenting and treatment for long-term.. he is stable to be discharged home today from our standpoint, he needs to have follow-up within 1 week, to consider further treatment Subjective Date/time seen: 09/01/20 14:45 he feels much better today, still with heaviness the leg, swelling is better, tolerating oral medications okay Exam Narrative: Exam Narrative: Awake alert oriented x3 not in acute distress Neck is supple no obvious JVD, no carotid bruit Chest: Good air entry bilaterally, lungs are clear to auscultation and percussion bilaterally Cardiovascular: Regular rate and rhythm, 2/6 systolic murmur noted left sternal border Abdomen: Soft nontender bowel sounds positive Extremities: left leg slightly swollen, with trace edema, slightly larger than the right leg but no significant calf or thigh tenderness, pulses are good bilaterally Objective Data Vital Signs Vital Signs: Vital Signs - 24 hr 08/31/20 16:00 08/31/20 19:48 08/31/20 19:55 Temperature 36.9 C 36.8 C Pulse Rate 64 75 Respiratory Rate 16 16 Blood Pressure 122/71 126/64 Pulse Oximetry 97 98 95 09/01/20 00:00 09/01/20 05:01 Temperature 36.6 C 36.4 C Pulse Rate 65 65 Respiratory Rate 18 14 Blood Pressure 112/63 110/63 Pulse Oximetry 98 97 Intake/Output Intake/Output: Intake & Output 08/29/20 08/30/20 08/31/20 09/01/20 23:59 23:59 23:59 23:59 Intake Total 3020 2320 2419 Output Total 1900 1000 1500 Balance 1120 1320 919 Meds/Results Radiology Results: ITS Impressions Chest/Abdomen/Pelvis CTA 08/29/20 20:25 IMPRESSION: 1. No evidence for pulmonary embolism. 2: Patchy peripheral airspace consolidation with areas of nodularity. Differential diagnosis includes pneumonia, atelectasis and/or focal areas of pulmonary infarction. 3: Heterogeneous appearance to the SVC which likely is due to flow mixing artifact rather than thrombosis, although thrombus is not excluded. 3: Unchanged small caliber inferior vena cava and bilateral common iliac veins with multiple collateral vessels, likely sequela of previous thrombosis. Venous Doppler Study 08/30/20 08:14 IMPRESSION: 1. Left common femoral through popliteal DVT, probably acute. 2. Slow venous flow bilaterally. I discussed DVT with hospitalist José Miguel at 08/30/2020 08:18 PUBLISHING SPECIALIST . Quality VTE Prophylaxis VTE prophylaxis: pharmacologic ordered (Heparin drip)
== END 2020-09-01 13:50 | disposition home or self-care (01) | DRG 300 ==
LOC: ANHED 22:06 → ANH3MED 22:21
PROVIDERS: Emergency Medicine Emergency Medical Services; Physician Assistant; Admitting Provider Internal Medicine; Emergency Provider Emergency Medicine; PCP Family Medicine; Visit Provider Family Medicine
DX: I82.432 Acute embolism and thrombosis of left popliteal vein (principal); D68.59 Other primary thrombophilia; I82.412 Acute embolism and thrombosis of left femoral vein; R05 Cough; R06.02 Shortness of breath; B94.8 Sequelae of other specified infectious and parasitic diseases; Z79.01 Long term (current) use of anticoagulants; Z86.718 Personal history of other venous thrombosis and embolism
CPT/HCPCS: 36415; 71275; 74177; 80053; 81001; 83735; 85025; 85380; 85610; 85652; 85730; 86140; 93005; 93306; 93970; 96361; 96365; 96366; 96375; 96376; 99285; A9270; G0378; J1644; J2270; J7030; Q9967

== ENCOUNTER 2020-09-12 10:56 | Outpatient (CLI) | payer BC, SELFPAY ==
--- NOTE | ~2020-09-12 | US_ITS ---
US venous doppler [facility] DATE: 09/12/2020 11:41 INDICATION: Left leg swelling; thrombosis of left common femoral, deep femoral, femoral and popliteal arteries was demonstrated on 08/30/2020 venous duplex examination TECHNIQUE: Real-time and color flow imaging and Doppler analysis COMPARISON: 08/30/2020 venous duplex examination of both lower extremities FINDINGS: There is partial recanalization of the previously thrombosed left popliteal vein. The femor al and common femoral veins remain completely thrombosed. IMPRESSION: Partial recanalization of left popliteal vein since 08/30/2020 Reviewed, dictated and finalized at [facility]. Reviewed, dictated and finalized at location [facility].
== END 2020-09-12 10:57 | disposition home or self-care (01) ==
PROVIDERS: PCP Family Medicine; Visit Provider Specialist
DX: I87.1 Compression of vein (principal); R60.0 Localized edema; I82.432 Acute embolism and thrombosis of left popliteal vein
CPT/HCPCS: 93971

== ENCOUNTER → 2020-10-13 12:21 | Outpatient (CLI) | payer BC, SELFPAY ==
--- NOTE | ~2020-10-13 | XR_ITS ---
EXAMINATION: XR chest 2V DATE: 10/13/2020 12:39 INDICATION: Cough. TECHNIQUE: Frontal and lateral views of the chest were obtained. COMPARISON: Chest 2 views 09/01/2018, chest CT 08/29/2020 FINDINGS: The chest demonstrates clear lungs without pneumonia, pleural effusion, or pneumothorax. Th e heart size is normal. IMPRESSION: 1. No acute cardiopulmonary disease. Reviewed, dictated and finalized at location [facility].
== END ==
PROVIDERS: PCP Family Medicine; Visit Provider Nurse Practitioner Family
DX: R05 Cough (principal)
CPT/HCPCS: 71046